=== PATIENT | female | born 1975 | race Caucasian/White ===

== ENCOUNTER 2020-12-02 16:34 | Emergency (ER) | payer OTHER ==
[~2020-12-02] VITALS: Ht 170.2 cm; Wt 69.4 kg
[2020-12-02] MEDS ORDERED: MEDROXYPROGESTE10 MG PO (19:44)
== END 2020-12-02 20:17 | disposition home or self-care (01) ==
LOC: ER 16:34
DX: N83.292 Other ovarian cyst, left side (principal); N93.8 Other specified abnormal uterine and vaginal bleeding